=== PATIENT | female | born 1960 | race Two or more races ===

== ENCOUNTER 2017-05-03 11:51 | Observation (INO) | payer OTHER ==
--- NOTE | 2017-05-03 12:28 | EDPHY ---
H & P Stated Complaint: RUQ pain, pain after eating x 2 weeks Time Seen by Provider: 05/03/17 12:28 - Personal History Current Tetanus Diphtheria and Acellular Pertussis (TDAP): Unsure - Medical/Surgical History Other PMH: GERD - Social History Smoking Status: Never smoked Constitutional: Initial Vital Signs Temperature (C) 36.9 C 05/03/17 11:55 Heart Rate 72 05/03/17 11:55 Respiratory Rate 18 05/03/17 11:55 Blood Pressure 168/93 H 05/03/17 11:55 O2 Sat (%) 97 05/03/17 11:55 O2 Delivery Mode Room Air Allergies/Adverse Reactions: No Known Allergies Allergy (Unverified 05/03/17 12:00) Home Medications: Medication Instructions Recorded Omeprazole [Prilosec 20 mg] 20 mg PO DAILY 05/03/17 Medical Decision Making - Diagnostics Imaging Results: Imaging Impressions Abdomen Ultrasound 05/03/17 12:53 Impression: 1. Cholelithiasis with mild gallbladder wall thickening suspicious for acute cholecystitis. 2. No biliary ductal dilation. 3. Hepatic steatosis without ascites. Findings and recommendations discussed with Emergency Department physician, Waqas Norton MD at 13:34 hour, 05/03/2017. Final report concurs with initial preliminary interpretation. Imaging: Discussed imaging studies w/ scallop dredger Radiologist ED Course/Re-evaluation: CHIEF COMPLAINT: RUQ pain HISTORY OF PRESENT ILLNESS: The patient is a 57 y/o female arriving with her family complaining of RUQ pain and bloating for the last 2 weeks that worsened last night after eating. She has a prior history of acid reflux that she reports has also worsened since pain onset. Prilosec helped the acid reflux, but not her pain. For the last 2 weeks she drastically changed her diet and reports eating only vegetables during that time. Last night she ate chicken and vegetables and her pain worsened shortly afterwards. She denies chest pain, dyspnea, vomiting, fever, or diarrhea. REVIEW OF SYSTEMS: A 10 point review of systems was performed and is negative with the exception of the elements mentioned in the history of present illness. PHYSICAL EXAM: HR, BP, O2 Sat, RR. Temp noted General Appearance: Alert, well hydrated, appropriate, smiling, obese, and non- toxic appearing. Head: Atraumatic without scalp tenderness or obvious injury Eyes: Pupils equal, round, reactive to light and accommodation, EOMI, no trauma , no injection. Nose: Atraumatic, no rhinorrhea, clear. Throat: There is no erythema or exudates, no lesions, normal tonsils, mucus membranes moist. Neck: Supple, nontender, no lymphadenopathy. Respiratory: No retractions, no distress, no wheezes, and no accessory muscle use. Lungs are clear to auscultation bilaterally. Cardiovascular: Regular rate and rhythm, no murmurs, rubs, or gallops. Good capillary refill all extremities. Gastrointestinal: Abdomen is soft, RUQ tenderness and positive Pineda's sign, non-distended, no masses, no rebound, no guarding, no peritoneal signs. Musculoskeletal: Normal active ROM of all extremities, atraumatic. Neurological: Alert, appropriate, and interactive. Nonfocal neuro exam. Skin: No rashes, good turgor, no nodules on palpation. Past medical history: Acid reflux. Past surgical history: Appendectomy Family history: noncontributory Social history: Family at bedside DIAGNOSTICS/PROCEDURES/CRITICAL CARE TIME: Abdominal US: Study: Ultrasound of the: right upper quadrant Indication: right upper quadrant pain x2 weeks getting worse Results: US scan of the right upper quadrant was obtained. The results of the study are thickened gallbladder wall with numerous gallstones and normal common bile duct. The study was read by the radiologist, Dr. Dean Timmons. I viewed the images myself on the PACS system. DIFFERENTIAL DIAGNOSIS: The differential diagnosis for the patient's abdominal pain included but was not limited to ovarian cyst, pelvic inflammatory disease, ovarian torsion, urinary tract infection, ectopic , cholecystitis, and appendicitis. MEDICAL DECISION MAKING: This is an obese, pleasant 57 y/o female who presents with a 2-week history of RUQ pain worsening over the last day after eating chicken. She denies any cardiac or systemic illness symptoms. She has tenderness in her RUQ with positive Pineda's sign on exam. Plan for IV, labs, and abdominal US to rule out gallbladder etiology for her pain. She declines pain medication at this time. Patient has an increased white blood cell count and cholelithiasis with thickened gallbladder wall. She has acute cholecystitis. This fits her symptomatology. She also has slightly elevated liver enzymes with a normal common duct. I will give her her depends him and call surgery for admission. - Data Points Laboratory Results: Laboratory Results 06/09/17 12:20 05/03/17 12:20 05/03/17 05/03/17 12:20 12:20 WBC 10.97 10^3/uL H 10^3/uL (3.80-9.50) RBC 4.90 10^6/uL 10^6/uL (4.18-5.33) Hgb 14.9 g/dL g/dL (12.6-16.3) Hct 44.2 % % (38.0-47.0) MCV 90.2 fL fL (81.5-99.8) MCH 30.4 pg pg (27.9-34.1) MCHC 33.7 g/dL g/dL (32.4-36.7) RDW 12.6 % % (11.5-15.2) Plt Count 292 10^3/uL 10^3/uL (150-400) MPV 12.2 fL H fL (8.7-11.7) Neut % (Auto) 63.2 % % (39.3-74.2) Lymph % (Auto) 28.1 % % (15.0-45.0) [place] % (Auto) 5.3 % % (4.5-13.0) Eos % (Auto) 2.4 % % (0.6-7.6) Baso % (Auto) 0.6 % % (0.3-1.7) Nucleat RBC Rel Count 0.0 % % (0.0-0.2) Absolute Neuts (auto) 6.94 10^3/uL H 10^3/uL (1.70-6.50) Absolute Lymphs (auto) 3.08 10^3/uL H 10^3/uL (1.00-3.00) Absolute Monos (auto) 0.58 10^3/uL 10^3/uL (0.30-0.80) Absolute Eos (auto) 0.26 10^3/uL 10^3/uL (0.03-0.40) Absolute Basos (auto) 0.07 10^3/uL 10^3/uL (0.02-0.10) Absolute Nucleated RBC 0.00 10^3/uL 10^3/uL (0-0.01) Immature Gran % 0.4 % % (0.0-1.1) Immature Gran # 0.04 10^3/uL 10^3/uL (0.00-0.10) Sodium 140 mEq/L mEq/L (134-144) Potassium 4.0 mEq/L mEq/L (3.5-5.2) Chloride 103 mEq/L mEq/L (97-110) Carbon Dioxide 25 mEq/l mEq/l (22-31) Anion Gap 12 mEq/L mEq/L (8-16) BUN 10 mg/dL mg/dL (7-23) Creatinine 0.6 mg/dL mg/dL (0.6-1.0) Estimated GFR > 60 Glucose 94 mg/dL mg/dL (70-100) Calcium 9.7 mg/dL mg/dL (8.5-10.4) Total Bilirubin 0.9 mg/dL mg/dL (0.1-1.4) Conjugated Bilirubin 0.4 mg/dL mg/dL (0.0-0.5) Unconjugated Bilirubin 0.5 mg/dL mg/dL (0.0-1.1) AST 88 IU/L H IU/L (14-46) ALT 108 IU/L H IU/L (9-52) Alkaline Phosphatase 90 IU/L IU/L (38-126) Total Protein 8.1 g/dL g/dL (6.3-8.2) Albumin 4.7 g/dL g/dL (3.5-5.0) Lipase 174.0 IU/L IU/L (23-300) Departure - Departure Disposition: [facility] Inpatient Acute Clinical Impression: Acute cholecystitis Condition: Fair Report Scribed for: Waqas Norton Report Scribed by: Olivia Suarez Date of Report: 05/03/17 Time of Report: 12:54
[2017-05-03 13:02] LABS: % IMMATURE GRANULYOCYTES 0.4 % (0.0-1.1); ABSOLUTE IMMATURE GRANULOCYTES 0.04 10^3/uL (0.00-0.10); ADD DIFF? NO; ADD MORPH? NO; ADD SCAN? NO; ATYPICAL LYMPHOCYTE FLAG 10 (0-99); FRAGMENT RBC FLAG 0 (0-99); HEMATOCRIT 44.2 % (38.0-47.0); HEMOGLOBIN 14.9 g/dL (12.6-16.3); LEFT SHIFT FLG 0 (0-99); LIPEMIA HEMOLYSIS FLAG 80 (0-99); MEAN CELL HEMOGLOBIN 30.4 pg (27.9-34.1); MEAN CELL HEMOGLOBIN CONCENTR. 33.7 g/dL (32.4-36.7); MEAN CELL VOLUME 90.2 fL (81.5-99.8); MEAN PLATELET VOLUME 12.2 fL (8.7-11.7); PLATELET CLUMPS FLAG 0 (0-99); PLATELET COUNT 292 10^3/uL (150-400); RED CELL DISTRIBUTION WIDTH 12.6 % (11.5-15.2)
[2017-05-03 13:09] LABS: ALANINE AMINOTRANSFERASE 108 IU/L (9-52); ALBUMIN 4.7 g/dL (3.5-5.0); ALKALINE PHOSPHATASE 90 IU/L (38-126); ANION GAP 12 mEq/L (8-16); ASPARTATE AMINOTRANSFERASE 88 IU/L (14-46); BILIRUBIN,TOTAL 0.9 mg/dL (0.1-1.4); BILIRUBIN-CONJUGATED 0.4 mg/dL (0.0-0.5); BILIRUBIN-UNCONJUGATED 0.5 mg/dL (0.0-1.1); CALCIUM 9.7 mg/dL (8.5-10.4); CARBON DIOXIDE 25 mEq/l (22-31); CHLORIDE 103 mEq/L (97-110); CREATININE 0.6 mg/dL (0.6-1.0); GLOMERULAR FILTRATION RATE > 60; GLUCOSE 94 mg/dL (70-100); SODIUM 140 mEq/L (134-144); TOTAL PROTEIN 8.1 g/dL (6.3-8.2)
[2017-05-03] MEDS ORDERED: ERTAPENEM 1 GM in NS 100 ML IV ONE (13:41)
[2017-05-03 14:36] LABS: COLOR PALE YELLOW; LEUKOCYTE ESTERASE,URINE TRACE (NEGATIVE); NITRITE,URINE NEGATIVE (NEGATIVE)
[2017-05-03 14:39] LABS: BACTERIA 2+ /hpf (NONE SEEN)
--- NOTE | 2017-05-03 16:15 | PDGENHP ---
History and Physical - Chief Complaint Abdominal pain - History of Present Illness 57yo F c 2 week history of abdominal pain. Pt states that she had similar pain about a month or so ago, was self limited at that time so she thought nothing of it. The pain returned 2 weeks ago, was precipitated by food. She attempted to modify her diet and was unsuccessful. She presents today with RUQ pain, sharp 7/10 in intensity, non-radiating. Not associated with nausea or vomiting. Denies fevers and chills. History Information - Allergies/Home Medication List Allergies/Adverse Reactions: No Known Allergies Allergy (Unverified 05/03/17 12:00) Home Medications: Herbals/Supplements -Info Only 1 ea PO DAILY 05/03/17 [Last Taken Unknown] Omeprazole [Prilosec 20 mg] 40 mg PO DAILY 05/03/17 [Last Taken 05/01/17] I have personally reviewed and updated: medical history, surgical history Past Medical History: obesity - Surgical History Reports: no pertinent surgical hx - Family History Positive for: non-pertinent - Social History Smoking Status: Never smoked Alcohol Use: Rarely Drug Use: None Review of Systems ROS: 10pt was reviewed & negative except for what was stated in HPI & below Physical Exam Temp Pulse Resp BP Pulse Ox 36.7 C 71 14 123/64 H 92 05/03/17 15:31 05/03/17 15:31 05/03/17 15:31 05/03/17 15:31 05/03/17 15:31 Constitutional: no apparent distress, appears nourished Eyes: PERRL, anicteric sclera Ears, Nose, Mouth, Throat: moist mucous membranes Cardiovascular: regular rate and rhythym Respiratory: no respiratory distress, no rales or rhonchi Gastrointestinal: other (Obese, soft, TTP in RUQ with positive [place]) Skin: warm Musculoskeletal: full muscle strength, no muscle tenderness Neurologic: AAOx3 Psychiatric: interacting appropriately Lymph, Heme, Immunologic: no cervical LAD Lab Data & Imaging Review 05/03/17 12:20 05/03/17 12:20 WBC 10.97 10^3/uL (3.80-9.50) H 05/03/17 12:20 RBC 4.90 10^6/uL (4.18-5.33) 05/03/17 12:20 Hgb 14.9 g/dL (12.6-16.3) 05/03/17 12:20 Hct 44.2 % (38.0-47.0) 05/03/17 12:20 MCV 90.2 fL (81.5-99.8) 05/03/17 12:20 MCH 30.4 pg (27.9-34.1) 05/03/17 12:20 MCHC 33.7 g/dL (32.4-36.7) 05/03/17 12:20 RDW 12.6 % (11.5-15.2) 05/03/17 12:20 Plt Count 292 10^3/uL (150-400) 05/03/17 12:20 MPV 12.2 fL (8.7-11.7) H 05/03/17 12:20 Neut % (Auto) 63.2 % (39.3-74.2) 05/03/17 12:20 Lymph % (Auto) 28.1 % (15.0-45.0) 05/03/17 12:20 [place] % (Auto) 5.3 % (4.5-13.0) 05/03/17 12:20 Eos % (Auto) 2.4 % (0.6-7.6) 05/03/17 12:20 Baso % (Auto) 0.6 % (0.3-1.7) 05/03/17 12:20 Nucleat RBC Rel Count 0.0 % (0.0-0.2) 05/03/17 12:20 Absolute Neuts (auto) 6.94 10^3/uL (1.70-6.50) H 05/03/17 12:20 Absolute Lymphs (auto) 3.08 10^3/uL (1.00-3.00) H 05/03/17 12:20 Absolute Monos (auto) 0.58 10^3/uL (0.30-0.80) 05/03/17 12:20 Absolute Eos (auto) 0.26 10^3/uL (0.03-0.40) 05/03/17 12:20 Absolute Basos (auto) 0.07 10^3/uL (0.02-0.10) 05/03/17 12:20 Absolute Nucleated RBC 0.00 10^3/uL (0-0.01) 05/03/17 12:20 Immature Gran % 0.4 % (0.0-1.1) 05/03/17 12:20 Immature Gran # 0.04 10^3/uL (0.00-0.10) 05/03/17 12:20 Sodium 140 mEq/L (134-144) 05/03/17 12:20 Potassium 4.0 mEq/L (3.5-5.2) 05/03/17 12:20 Chloride 103 mEq/L (97-110) 05/03/17 12:20 Carbon Dioxide 25 mEq/l (22-31) 05/03/17 12:20 Anion Gap 12 mEq/L (8-16) 05/03/17 12:20 BUN 10 mg/dL (7-23) 05/03/17 12:20 Creatinine 0.6 mg/dL (0.6-1.0) 05/03/17 12:20 Estimated GFR > 60 05/03/17 12:20 Glucose 94 mg/dL (70-100) 05/03/17 12:20 Calcium 9.7 mg/dL (8.5-10.4) 05/03/17 12:20 Total Bilirubin 0.9 mg/dL (0.1-1.4) 05/03/17 12:20 Conjugated Bilirubin 0.4 mg/dL (0.0-0.5) 05/03/17 12:20 Unconjugated Bilirubin 0.5 mg/dL (0.0-1.1) 05/03/17 12:20 AST 88 IU/L (14-46) H 05/03/17 12:20 ALT 108 IU/L (9-52) H 05/03/17 12:20 Alkaline Phosphatase 90 IU/L (38-126) 05/03/17 12:20 Total Protein 8.1 g/dL (6.3-8.2) 05/03/17 12:20 Albumin 4.7 g/dL (3.5-5.0) 05/03/17 12:20 Lipase 174.0 IU/L (23-300) 05/03/17 12:20 Urine Color PALE YELLOW 05/03/17 14:25 Urine Appearance CLEAR 05/03/17 14:25 Urine pH 8.0 (5.0-7.5) H 05/03/17 14:25 Ur Specific [place] 1.003 (1.002-1.030) 05/03/17 14:25 Urine Protein NEGATIVE (NEGATIVE) 05/03/17 14:25 Urine Ketones NEGATIVE (NEGATIVE) 05/03/17 14:25 Urine Blood NEGATIVE (NEGATIVE) 05/03/17 14:25 Urine Nitrate NEGATIVE (NEGATIVE) 05/03/17 14:25 Urine Bilirubin NEGATIVE (NEGATIVE) 05/03/17 14:25 Urine Urobilinogen NEGATIVE EU (0.2-1.0) 05/03/17 14:25 Ur Leukocyte Esterase TRACE (NEGATIVE) H 05/03/17 14:25 Urine RBC 1-3 /hpf (0-3) 05/03/17 14:25 Urine WBC 1-3 /hpf (0-3) 05/03/17 14:25 Ur Epithelial Cells TRACE /lpf (NONE-1+) 05/03/17 14:25 Urine Bacteria 2+ /hpf (NONE SEEN) H 05/03/17 14:25 Urine Glucose NEGATIVE (NEGATIVE) 05/03/17 14:25 Imaging Review: Ultrasound Visualized and Interpreted imaging results: Yes Interpretation: Us shows stones, GBW thickening, no PCF, no ductal dilatation Assessment & Plan Assessment: Acute cholecystitis (Acute) 57yo F c acute cholecystitis Plan: RBA discussed. Will plan to proceed to the operating room for laparoscopic cholecystectomy. Abx given in ED. Last PO taken at 10 this AM (water, last solids last night). Discussed plan with Errol
[2017-05-03] MEDS ORDERED: BUPIVACAINE/EPI 0.25% 30 ML SDV ONE ×2 (18:11→18:12)
[2017-05-03] MEDS ORDERED: IOPAMIDOL (ISOVUE-300) 150 ML BTL ONE (18:11)
[2017-05-03] MEDS ORDERED: MIDAZOLAM 2 MG/2 ML VIAL ONE (19:50)
[2017-05-03] MEDS ORDERED: PROPOFOL 200 MG/20 ML VIAL ONE (19:55)
[2017-05-03] MEDS ORDERED: fentaNYL 100 MCG/2 ML INJ ONE ×4 (19:55→21:34)
[2017-05-03] MEDS ORDERED: LIDOCAINE 2% 5 ML SDV ONE (19:59)
[2017-05-03] MEDS ORDERED: ROCURONIUM 50 MG/5 ML VIAL ONE (19:59)
[2017-05-03] MEDS ORDERED: SUCCINYLCHOLINE CHLORIDE*ANESTHESIA ONLY*200 MG/10 ML SYR IVP ONE (20:03)
[2017-05-03] MEDS ORDERED: PHENYLEPHRINE HCL 100 MCG/ML SYR ONE (20:07)
[2017-05-03] MEDS ORDERED: HYDROCODONE/APAP 5/325 TAB PO PRN (21:10)
[2017-05-03] MEDS ORDERED: HYDROmorphONE/DILAUDID 1 MG/ML SYR IVP PRN (21:10)
[2017-05-03] MEDS ORDERED: ONDANSETRON 4 MG/2 ML VIAL IVP PRN (21:10)
--- NOTE | 2017-05-03 21:10 | POSTOPPROG ---
Post Op Note Date of Operation: 05/03/17 Surgeon: Rony Ibanez Anesthesiologist: Natalio Anesthesia: GET(General Endotracheal) Pre-op Diagnosis: Cholecystitis Post-op Diagnosis: same Procedure: lap eddie Findings: adhesions, edema, critical view Inf/Abcess present in the surg proc area at time of surgery?: No EBL: Minimal Specimen(s): gallbag
[2017-05-03] MEDS ORDERED: D5W 1/2 NS W/ 20 KCl/L 1,000 ML IV SCH (21:15)
--- NOTE | 2017-05-03 21:46 | GOP ---
[f rep st] OPERATIVE REPORT DATE OF OPERATION: 05/03/2017 SURGEON: Rony Ibanez MD CANDY MAKER: None. ANESTHESIA: General endotracheal. ANESTHESIOLOGIST: Tamir Lance MD PREOPERATIVE DIAGNOSIS: Cholecystitis. POSTOPERATIVE DIAGNOSIS: Cholecystitis. PROCEDURE PERFORMED: Laparoscopic cholecystectomy. FINDINGS: Edematous gallbladder wall with some adhesions. A critical view was obtained. SPECIMENS: Gallbladder. ESTIMATED BLOOD LOSS: 20 cc. DESCRIPTION OF PROCEDURE: The patient was greeted in the preoperative suite. Once again, risks, be nefits, and alternatives were discussed. Consent was signed. She was then taken back to the operat yolande suite, placed on the OR table in a supine position. After all anesthesia machines, including SC Ds, were on and functioning, a [employer] timeout was performed ending with all in ag reement. General endotracheal anesthesia was then induced without incident. The patient's abdomen was then widely prepped and draped in typical sterile fashion. I entered the abdomen using the Ciara ss needle in an infraumbilical fashion and insufflated with CO2 to 15 mmHg. After successful insuff lation, I inserted a 12 mm port through the infraumbilical incision. After this was done, I placed 3 additional 5 mm ports, 2 in the right upper quadrant, 1 in the subxiphoid, all under direct visuali zation. I then identified the gallbladder. I grasped the dome of it and retracted it successfully o marbin the liver, grasping the infundibulum. I dissected at that site and identified 2 and only 2 struc tures leading toward the gallbladder. I clipped these both doubly proximally, single on the distal side, and divided them with alyssa. Once this was done, I turned my attention toward taking the gall bladder off the liver bed which was done with electrocautery. It was then placed in an EndoCatch bag and removed. Hemostasis was achieved with electrocautery. The right upper quadrant was then irrig ated with 1 L of normal saline, noting clear effluent in the suction canister. The infraumbilical p ort site was then closed with an interrupted 0 Vicryl in a [id number] fashion using the Rick- Vishnu fascial closure device. The skin was closed with running 4-0 Monocryl over which Dermabond was placed. The patient was then extubated and taken to the PACU in satisfactory condition. DRAINS: None. COUNTS: All counts were reported as correct x2. /[id number]/MODL
[2017-05-04 07:17] VITALS: RESP 14
--- NOTE | 2017-05-04 07:47 | SOAPPROG ---
SOAP Progress Note Assessment/Plan: Assessment: Plan: POD#1 s/p lap eddie - Looks good, pain controlled. Ordered a feast for breakfast - Of breakfast goes well plan for home later today. Rx for [place] in chart - FU in office 10-14 days 05/04/17 07:47 Objective: Vital Signs Temp Pulse Resp BP Pulse Ox 36.9 C 53 L 14 116/52 L 97 05/04/17 07:14 05/04/17 04:00 05/04/17 07:14 05/04/17 07:14 05/04/17 04:00 05/03/17 05/04/17 05/05/17 05:59 05:59 05:59 Intake Total 1090 Output Total 205 200 Balance 885 -200 ICD10 Worksheet Patient Problems: Problems Problem Status Onset Acute cholecystitis Acute
[2017-05-04 11:09] VITALS: BP 112/50; PULSE 46; TEMP 98.1; O2SAT 92
== END 2017-05-04 15:05 | disposition home or self-care (01) ==
LOC: F3E 15:22
PROVIDERS: ADMIT Surgery; ATTEND Surgery
PROC: 0FT44ZZ Resection of Gallbladder, Percutaneous Endoscopic Approach (ICD-10-PCS; principal; 2017-05-03 18:00)
DX: K81.0 Acute cholecystitis (principal); K21.9 Gastro-esophageal reflux disease without esophagitis
CPT/HCPCS: 47562; 76705; 96365; 99285; G0378; J0330; J1335; J2250; J2370; J2405; J2704; J3010; Q9967